=== PATIENT | male | born 1985 | race Hispanic/Latino ===

== ENCOUNTER 2022-08-24 15:11 | Emergency (ER) | payer SELFPAY ==
[~2022-08-24] VITALS: Ht 172.7 cm; Wt 73.9 kg
[2022-08-24] MEDS ORDERED: SODIUM CHLORIDE FLUSH 10 ML SYR IV PRN (15:30)
[2022-08-24] MEDS ORDERED: LORAZEPAM INJ 2 MG/ML VIAL IV ONE (15:30)
[2022-08-24] MEDS ORDERED: ASPIRIN 81 MG CHEW TAB PO ONE (15:30)
[2022-08-24 15:38] LABS: BASOPHILS # (AUTO) 0.1 (0.0-0.1); BASOPHILS % 0.7 % (0.0-1.0); EOSINOPHILS % 0.4 % (0.0-6.0); HEMATOCRIT 50.8 % (38.2-49.6); LYMPHOCYTES # (AUTO) 1.5 (1.0-3.2); LYMPHOCYTES % 14.5 % (18.0-39.1); MEAN CORPUSCULAR HEMOGLOBIN 30.6 pg (28-32); MEAN CORPUSCULAR HGB CONC 33.5 g/dL (31-35); MEAN CORPUSCULAR VOLUME 91.5 fL (81-99); MONOCYTES # (AUTO) 0.4 (0.2-0.8); MONOCYTES % 3.4 % (4.4-11.3); NEUTROPHILS # (AUTO) 8.3 (2.1-6.9); NEUTROPHILS % 80.7 % (38.7-80.0); PLATELET COUNT 337 x10e3/uL (140-360); RED BLOOD COUNT 5.55 x10e6/uL (4.3-5.7); RED CELL DISTRIBUTION WIDTH 11.7 % (11.7-14.4)
[2022-08-24] MEDS ORDERED: LORAZEPAM INJ 2 MG/ML VIAL ONE (15:39)
[2022-08-24 15:52] LABS: ALBUMIN 4.6 g/dL (3.5-5.0); ALBUMIN/GLOBULIN RATIO 1.2 (0.8-2.0); ANION GAP 19.9 mmol/L (8-16); CALCIUM 9.4 mg/dL (8.4-10.2); CREATININE, SERUM 1.2 mg/dL (0.72-1.25); POTASSIUM 3.9 mmol/L (3.5-5.1)
[2022-08-24 16:38] LABS: AMPHETAMINES SCREEN,URINE POSITIVE (NEGATIVE); BENZODIAZEPINES SCREEN,URINE POSITIVE (NEGATIVE); PHENCYCLIDINE SCREEN,URINE NEGATIVE (NEGATIVE)
[2022-08-24 17:22] VITALS: BP 127/83
== END 2022-08-24 17:23 | disposition home or self-care (01) ==
LOC: ER 15:17
DX: R06.02 Shortness of breath (principal); R07.89 Other chest pain; I16.0 Hypertensive urgency; F15.10 Other stimulant abuse, uncomplicated; I10 Essential (primary) hypertension; I25.2 Old myocardial infarction
CPT/HCPCS: 36415; 71045; 80053; 80307; 84484; 85025; 93005; 94760; 99284; J2060

== ENCOUNTER 2022-08-31 18:47 | Emergency (ER) | payer SELFPAY ==
[~2022-08-31] VITALS: Ht 172.7 cm; Wt 73.9 kg
[2022-08-31] MEDS ORDERED: LORAZEPAM 1 MG TAB PO PRN (19:00)
[2022-08-31 19:14] LABS: BASOPHILS # (AUTO) 0.1 (0.0-0.1); BASOPHILS % 0.6 % (0.0-1.0); EOSINOPHILS # (AUTO) 0.1 (0.0-0.4); EOSINOPHILS % 0.5 % (0.0-6.0); HEMATOCRIT 48.2 % (38.2-49.6); HEMOGLOBIN 16.1 g/dL (14.0-18.0); LYMPHOCYTES # (AUTO) 1.3 (1.0-3.2); LYMPHOCYTES % 12.2 % (18.0-39.1); MEAN CORPUSCULAR HEMOGLOBIN 30.6 pg (28-32); MEAN CORPUSCULAR HGB CONC 33.4 g/dL (31-35); MEAN CORPUSCULAR VOLUME 91.5 fL (81-99); MONOCYTES # (AUTO) 0.4 (0.2-0.8); MONOCYTES % 3.9 % (4.4-11.3); NEUTROPHILS # (AUTO) 8.8 (2.1-6.9); NEUTROPHILS % 82.6 % (38.7-80.0); PLATELET COUNT 356 x10e3/uL (140-360); RED BLOOD COUNT 5.27 x10e6/uL (4.3-5.7); RED CELL DISTRIBUTION WIDTH 11.6 % (11.7-14.4)
[2022-08-31] MEDS ORDERED: LORAZEPAM INJ 2 MG/ML VIAL ONE (19:27)
[2022-08-31] MEDS ORDERED: LORAZEPAM INJ 2 MG/ML VIAL IV ONE ×2 (19:30→20:30)
[2022-08-31 19:32] LABS: ALBUMIN 4.1 g/dL (3.5-5.0); ALBUMIN/GLOBULIN RATIO 1.2 (0.8-2.0); ANION GAP 16.8 mmol/L (8-16); CALCIUM 9.6 mg/dL (8.4-10.2); CREATININE, SERUM 1.22 mg/dL (0.72-1.25); POTASSIUM 3.8 mmol/L (3.5-5.1)
[2022-08-31 19:38] LABS: CREATINE KINASE MB 3.5 ng/mL (0-5.0)
[2022-08-31] MEDS ORDERED: SODIUM CHLORIDE 0.9% 1000ML 1,000 ML IV ONE ×2 (20:30)
[2022-08-31] MEDS ORDERED: SODIUM CHLORIDE 0.9% 1000ML 2,000 ML ONE (20:42)
== END 2022-08-31 21:41 | disposition home or self-care (01) ==
LOC: ER 18:58
DX: R07.9 Chest pain, unspecified (principal); F15.10 Other stimulant abuse, uncomplicated; I10 Essential (primary) hypertension; I25.2 Old myocardial infarction; R94.31 Abnormal electrocardiogram [ECG] [EKG]
CPT/HCPCS: 36415; 71045; 80053; 82550; 82553; 84484; 85025; 93005; 99284; J2060; J7030

== ENCOUNTER 2022-09-03 09:17 | Emergency (ER) | payer SELFPAY ==
[~2022-09-03] VITALS: Ht 172.7 cm; Wt 73.9 kg
[2022-09-03 09:44] LABS: BASOPHILS # (AUTO) 0.1 (0.0-0.1); BASOPHILS % 0.5 % (0.0-1.0); EOSINOPHILS # (AUTO) 0.1 (0.0-0.4); EOSINOPHILS % 1.1 % (0.0-6.0); HEMATOCRIT 49.2 % (38.2-49.6); HEMOGLOBIN 16.2 g/dL (14.0-18.0); LYMPHOCYTES # (AUTO) 1.1 (1.0-3.2); LYMPHOCYTES % 12.4 % (18.0-39.1); MEAN CORPUSCULAR HEMOGLOBIN 30.3 pg (28-32); MEAN CORPUSCULAR HGB CONC 32.9 g/dL (31-35); MEAN CORPUSCULAR VOLUME 92.1 fL (81-99); MONOCYTES # (AUTO) 0.3 (0.2-0.8); MONOCYTES % 3.4 % (4.4-11.3); NEUTROPHILS # (AUTO) 7.6 (2.1-6.9); NEUTROPHILS % 82.3 % (38.7-80.0); PLATELET COUNT 331 x10e3/uL (140-360); RED BLOOD COUNT 5.34 x10e6/uL (4.3-5.7); RED CELL DISTRIBUTION WIDTH 11.7 % (11.7-14.4)
[2022-09-03] MEDS ORDERED: SODIUM CHLORIDE 0.9% 1000ML 1,000 ML IV SCH (10:00)
[2022-09-03] MEDS ORDERED: SODIUM CHLORIDE 0.9% 1000ML 1,000 ML ONE (10:10)
[2022-09-03 10:38] LABS: ALBUMIN 3.6 g/dL (3.5-5.0); ALBUMIN/GLOBULIN RATIO 1.2 (0.8-2.0); ANION GAP 13.8 mmol/L (8-16); CALCIUM 8.6 mg/dL (8.4-10.2); CREATININE, SERUM 0.87 mg/dL (0.72-1.25); POTASSIUM 3.8 mmol/L (3.5-5.1)
[2022-09-03 11:58] VITALS: BP 170/120
== END 2022-09-03 11:59 | disposition home or self-care (01) ==
LOC: ER 09:23
DX: F15.10 Other stimulant abuse, uncomplicated (principal); R07.9 Chest pain, unspecified; I10 Essential (primary) hypertension; I25.2 Old myocardial infarction
CPT/HCPCS: 36415; 71045; 80053; 83880; 84484; 85025; 85379; 93005; 99284; J7030

== ENCOUNTER 2023-01-10 09:39 | Emergency (ER) | payer OTHER ==
[~2023-01-10] VITALS: Ht 172.7 cm; Wt 73.9 kg
[2023-01-10 10:01] LABS: BASOPHILS # (AUTO) 0.1 (0.0-0.1); BASOPHILS % 0.9 % (0.0-1.0); EOSINOPHILS % 0.4 % (0.0-6.0); HEMATOCRIT 51.2 % (38.2-49.6); HEMOGLOBIN 17.4 g/dL (14.0-18.0); LYMPHOCYTES # (AUTO) 1.6 (1.0-3.2); LYMPHOCYTES % 23.1 % (18.0-39.1); MEAN CORPUSCULAR HEMOGLOBIN 30.2 pg (28-32); MEAN CORPUSCULAR VOLUME 88.9 fL (81-99); MONOCYTES # (AUTO) 0.5 (0.2-0.8); MONOCYTES % 6.7 % (4.4-11.3); NEUTROPHILS # (AUTO) 4.7 (2.1-6.9); NEUTROPHILS % 67.6 % (38.7-80.0); PLATELET COUNT 343 x10e3/uL (140-360); RED BLOOD COUNT 5.76 x10e6/uL (4.3-5.7); RED CELL DISTRIBUTION WIDTH 12.2 % (11.7-14.4)
[2023-01-10] MEDS: LORAZEPAM INJ 2 MG/ML VIAL IV ONE (10:02)
[2023-01-10] MEDS: LACTATED RINGER'S 1,000 ML INJ ONE (10:02)
[2023-01-10 10:27] LABS: ALBUMIN 4.4 g/dL (3.5-5.0); ALBUMIN/GLOBULIN RATIO 1.3 (0.8-2.0); ANION GAP 17.9 mmol/L (8-16); CREATININE, SERUM 1.31 mg/dL (0.72-1.25); POTASSIUM 3.9 mmol/L (3.5-5.1)
== END 2023-01-10 11:09 | disposition home or self-care (01) ==
LOC: ER 09:43
DX: R07.89 Other chest pain (principal); F15.10 Other stimulant abuse, uncomplicated; R00.0 Tachycardia, unspecified; I10 Essential (primary) hypertension
CPT/HCPCS: 36415; 71045; 80053; 83690; 84484; 85025; 93005; 99284; J2060; J7121

== ENCOUNTER 2023-01-11 02:39 | Emergency (ER) | payer OTHER ==
[~2023-01-11] VITALS: Ht 172.7 cm; Wt 73.9 kg
[2023-01-11 03:09] LABS: BASOPHILS # (AUTO) 0.1 (0.0-0.1); BASOPHILS % 1.1 % (0.0-1.0); EOSINOPHILS # (AUTO) 0.1 (0.0-0.4); EOSINOPHILS % 1.7 % (0.0-6.0); HEMATOCRIT 46.8 % (38.2-49.6); LYMPHOCYTES # (AUTO) 2.1 (1.0-3.2); LYMPHOCYTES % 31.7 % (18.0-39.1); MEAN CORPUSCULAR HEMOGLOBIN 30.5 pg (28-32); MEAN CORPUSCULAR HGB CONC 34.2 g/dL (31-35); MEAN CORPUSCULAR VOLUME 89.3 fL (81-99); MONOCYTES # (AUTO) 0.5 (0.2-0.8); MONOCYTES % 8.1 % (4.4-11.3); NEUTROPHILS # (AUTO) 3.8 (2.1-6.9); NEUTROPHILS % 57.1 % (38.7-80.0); PLATELET COUNT 303 x10e3/uL (140-360); RED BLOOD COUNT 5.24 x10e6/uL (4.3-5.7); RED CELL DISTRIBUTION WIDTH 12.1 % (11.7-14.4)
[2023-01-11] MEDS ORDERED: ASPIRIN 81 MG CHEW TAB PO STA (03:29)
[2023-01-11] MEDS ORDERED: SODIUM CHLORIDE 0.9% 1000ML 1,000 ML IV ONE (03:30)
[2023-01-11 03:31] LABS: ANION GAP 14.2 mmol/L (8-16); CALCIUM 9.1 mg/dL (8.4-10.2); CREATININE, SERUM 1.21 mg/dL (0.72-1.25); POTASSIUM 4.2 mmol/L (3.5-5.1)
[2023-01-11] MEDS ORDERED: LORAZEPAM INJ 2 MG/ML VIAL IV ONE (03:45)
[2023-01-11] MEDS ORDERED: SODIUM CHLORIDE 0.9% 1000ML 1,000 ML ONE (03:46)
[2023-01-11] MEDS ORDERED: ASPIRIN 81 MG CHEW TAB ONE (03:46)
[2023-01-11] MEDS ORDERED: LORAZEPAM INJ 2 MG/ML VIAL ONE (03:52)
== END 2023-01-11 04:12 | disposition home or self-care (01) ==
LOC: ER 02:42
DX: R07.9 Chest pain, unspecified (principal); F15.10 Other stimulant abuse, uncomplicated
CPT/HCPCS: 36415; 71045; 80048; 82550; 82553; 84484; 85025; 93005; 99284; J2060; J7030

== ENCOUNTER 2023-04-05 02:53 | Emergency (ER) | payer SELFPAY ==
[~2023-04-05] VITALS: Ht 172.7 cm; Wt 73.9 kg
[2023-04-05 03:14] LABS: BASOPHILS # (AUTO) 0.1 (0.0-0.1); EOSINOPHILS # (AUTO) 0.1 (0.0-0.4); EOSINOPHILS % 0.6 % (0.0-6.0); HEMATOCRIT 50.2 % (38.2-49.6); HEMOGLOBIN 17.4 g/dL (14.0-18.0); LYMPHOCYTES # (AUTO) 2.2 (1.0-3.2); LYMPHOCYTES % 26.8 % (18.0-39.1); MEAN CORPUSCULAR HEMOGLOBIN 30.5 pg (28-32); MEAN CORPUSCULAR HGB CONC 34.7 g/dL (31-35); MEAN CORPUSCULAR VOLUME 88.1 fL (81-99); MONOCYTES # (AUTO) 0.6 (0.2-0.8); MONOCYTES % 7.1 % (4.4-11.3); NEUTROPHILS # (AUTO) 5.2 (2.1-6.9); NEUTROPHILS % 64.1 % (38.7-80.0); PLATELET COUNT 356 x10e3/uL (140-360); RED CELL DISTRIBUTION WIDTH 12.3 % (11.7-14.4)
[2023-04-05 03:32] LABS: ALBUMIN 4.5 g/dL (3.5-5.0); ALBUMIN/GLOBULIN RATIO 1.2 (0.8-2.0); ANION GAP 17.5 mmol/L (8-16); CALCIUM 9.9 mg/dL (8.4-10.2); CREATININE, SERUM 1.21 mg/dL (0.72-1.25); POTASSIUM 3.5 mmol/L (3.5-5.1)
[2023-04-05] MEDS ORDERED: LORAZEPAM INJ 2 MG/ML VIAL IV ONE ×2 (04:15→04:30)
[2023-04-05] MEDS ORDERED: SODIUM CHLORIDE 0.9% 1000ML 1,000 ML IV ONE (04:15)
[2023-04-05] MEDS ORDERED: SODIUM CHLORIDE 0.9% 1000ML 1,000 ML ONE (04:20)
[2023-04-05] MEDS ORDERED: LORAZEPAM INJ 2 MG/ML VIAL ONE (04:20)
[2023-04-05 04:40] VITALS: O2SAT 100
[2023-04-05 05:17] VITALS: BP 178/124
== END 2023-04-05 05:00 | disposition home or self-care (01) ==
LOC: ER 02:59
DX: F15.10 Other stimulant abuse, uncomplicated (principal); R07.9 Chest pain, unspecified; R06.02 Shortness of breath; R00.0 Tachycardia, unspecified
CPT/HCPCS: 36415; 80053; 84484; 85025; 93005; 99284; J2060; J7030